=== PATIENT | male | born 1965 | race Caucasian/White ===

== ENCOUNTER 2017-11-11 07:25 | Outpatient (CLI) | payer BC ==
--- NOTE | 2017-11-11 09:04 | CT ---
CT OF THE ABDOMEN AND PELVIS WITH CONTRAST: Date: 11/11/17 COMPARISON: None. HISTORY: Recent colonoscopy with questionable appendix mass. COMPARISON: None. TECHNIQUE: Multiple contiguous axial images were obtained in a CT of the abdomen and pelvis with contrast. Coron al reformats were performed. PO contrast was administered. FINDINGS: The liver, gallbladder, right kidney, adrenal glands, spleen, and pancreas are unremarkable. A small hypodensity in the left kidney likely represents a small cyst. No free air, free fluid, or stranding changes are seen in the abdomen and pelvis. The large and small bowel are unremarkable. The appendix is unremarkable. No obvious mass is seen in the appendix. The base of the appendix is mi ldly prominent, measuring 10.0 mm, but the rest of the appendix is normal in caliber. The appendix is fluid-filled. Contrast is seen in the right colon, but no contrast is seen in the cecum, and the lac k of filling of contrast of the appendix may not be significant. No abdominal or pelvic lymphadenopathy seen. Degenerative changes are seen in the spine. The visualized inferior thorax and abdominal wall soft ti ssues are unremarkable. IMPRESSION: No evidence of acute intra-abdominal/pelvic abnormality. POS: [facility]
[2017-11-11] MEDS ORDERED: Iopamidol 370 76% 100 ML VIAL ONE (12:50)
== END 2017-11-11 07:26 | disposition home or self-care (01) ==
LOC: CT 07:25
PROVIDERS: ATTEND Internal Medicine Gastroenterology
DX: K38.9 Disease of appendix, unspecified (principal)
CPT/HCPCS: 74177

== ENCOUNTER 2017-11-29 12:58 | Outpatient (CLI) | payer BC ==
[2017-11-29 13:53] LABS: #Eosinphils 0.3 thou/uL (0.0-0.7); #Lymphocytes 1.6 thou/uL (1.20-3.40); #Monocytes 0.7 thou/uL (0.11-0.59); #Neutrophils 4.9 thou/uL (1.40-6.50); %Basophils 0.6 % (0.0-1.0); %Eosinophils 3.4 % (0.0-10.0); %Lymphocytes 20.7 % (21.0-51.0); %Monocytes 9.8 % (0.0-10.0); %Neutrophils 65.5 % (42.0-75.0); Hemoglobin 14.2 g/dL (14.0-18.0); Mean Corpuscular HGB CONC 36.3 g/dL (32.0-36.0); Mean Corpuscular Hemoglobin 32.7 pg (27.0-31.0); Mean Corpuscular Volume 90.2 fL (78.0-98.0); Mean Platelet Volume 7.4 fL (7.4-10.4); Platelet Count 231 thou/uL (130-400); RBC Distribution Width 11.5 % (11.5-14.5); Red Blood Cell (RBC) Count 4.35 mill/uL (4.70-6.10); White Blood Cell (WBC) Count 7.5 thou/uL (4.8-10.8)
[2017-11-29 14:02] LABS: Hemoglobin A1c 5.9 % (4.0-6.0)
[2017-11-29 14:16] LABS: Anion Gap 15 mmol/L (10-20); BUN (Urea Nitrogen) 15 mg/dL (8.9-20.6); Calc. Creatinine Clearance 0 mL/min (70-130); Calcium 9.5 mg/dL (7.8-10.44); Carbon Dioxide 24 mmol/L (22-29); Chloride 106 mmol/L (98-107); Estimated GFR-MDRD 78; Glucose 150 mg/dL (70-105); Potassium 3.8 mmol/L (3.5-5.1); Sodium 141 mmol/L (136-145)
--- NOTE | 2017-12-01 23:18 | EKG ---
Test Reason : Blood Pressure : / mmHG Vent. Rate : 099 BPM Atrial Rate : 099 BPM P-R Int : 156 ms QRS Dur : 082 ms QT Int : 342 ms P-R-T Axes : 052 003 017 degrees QTc Int : 438 ms Normal sinus rhythm Possible Inferior infarct , age undetermined Abnormal ECG When compared with ECG of 03-JUN-2014 14:10, Borderline criteria for Inferior infarct are now Present Confirmed by Mary Alice VELASCO ([id number]) on 12/01/2017 11:18:06 PM Referred By: MICHAEL Confirmed By:Mary Alice VELASCO
== END 2017-11-29 12:59 | disposition home or self-care (01) ==
LOC: LABBT 12:58
PROVIDERS: ATTEND Surgery
DX: Z01.818 Encounter for other preprocedural examination (principal); K38.8 Other specified diseases of appendix
CPT/HCPCS: 80048; 83036; 85025; 93005; 93010

== ENCOUNTER 2017-11-29 13:15 | Inpatient (IN) | payer BC ==
[2017-11-29 13:04] VITALS: BMI 32.8
[2017-12-05] MEDS ORDERED: Sodium Chloride 0.9% 100 ML ONE (07:52)
[2017-12-05] MEDS ORDERED: cefOXitin 2 GM VIAL ONE (07:52)
[2017-12-05] MEDS ORDERED: Dexamethasone 4 mg/ml Vial ONE (08:32)
[2017-12-05] MEDS ORDERED: Midazolam HCl 2 mg/2 ml Vial ONE (08:32)
[2017-12-05] MEDS ORDERED: Fentanyl 100 MCG/2 ML VIAL ONE ×2 (08:32→09:37)
[2017-12-05] MEDS ORDERED: Bupivacaine/Epinephrine 0.25% 30 ML VIAL ONE (09:25)
--- NOTE | 2017-12-05 12:06 | OP ---
DATE OF PROCEDURE: 12/05/2017 PREOPERATIVE DIAGNOSIS: Appendiceal mass. POSTOPERATIVE DIAGNOSIS: Appendiceal mass. PROCEDURE PERFORMED: Laparoscopic appendectomy. SURGEON: Rashaad Lacey M.D. ANESTHESIA: General. ESTIMATED BLOOD LOSS: Minimal. COMPLICATIONS: None. SPECIMEN: Appendix, opened on the back table to reveal cystic like changes at the base. No obvious gross involvement of the staple line. INDICATION: The patient is a 52-year-old male who had mucus coming out of his appendix on recent col onoscopy. CT scan revealed what appeared to be a fluid-filled appendix. The patient was asymptomati c, referred to [place] for appendectomy for removal of his presumed mucocele. The patient underwent mecha nical and antibiotic bowel prep in case he needed more of an extended colectomy. TECHNIQUE: The patient was taken to the operating room and placed supine on the table. After genera l anesthetic was obtained, a Peraza was placed. The abdomen was shaved, prepped, and draped in a ster ile fashion. Curved incision was made below the umbilicus. Cautery was used to dissect down to and score the fascia. Abdominal cavity entered bluntly using a Berkley clamp. A 12-mm trocar was placed. High-flow pneumoperitoneum was obtained. Suprapubic 5-mm port and left lower quadrant 5-mm port wer e placed under direct visualization. The cecum was rolled over to reveal the appendix. There was a cystic like potential mass at the base. A window was made posterior to the appendiceal base in this area of the cecum. The colon was mobilized along the white line laterally. Two loads of a 45 laparo scopic stapler was used to fire across the cecum to remove the appendix. The mesentery was taken usi ng a portillo load of the stapler. The appendix was placed in an Endo catch bag and brought out through the [place], opening the specimen on the back table revealed the presumed cystic mass to be within the appendix and no gross involvement of the margin. There is no bleeding on the staple lines. All por t sites are removed under camera visualization and pneumoperitoneum is let down. Vicryl was used to close the fascial defect below the umbilicus. All incisions were irrigated and closed using 4-0 Cascade cryl and Dermabond. The patient is en route to recovery in stable condition. All instrument counts, needle counts, lap counts were correct.
[2017-12-05] MEDS ORDERED: Bupivacaine HCl 0.5%/Epinephrine 1:200,000/PF 30 ml Vial ONE (13:59)
[2017-12-05] MEDS ORDERED: Ketorolac Tromethamine 30 MG/ML VIAL ONE (14:48)
[2017-12-05] MEDS ORDERED: Glycopyrrolate 0.2 MG/ML 5 ML SYRINGE ONE (14:48)
[2017-12-05] MEDS ORDERED: Ondansetron PF 4 MG/2 ML Vial ONE (14:48)
[2017-12-05] MEDS ORDERED: Lidocaine 1% PF 5 ML VIAL ONE (14:48)
[2017-12-05] MEDS ORDERED: PROPOFOL 200 MG/20 ML VIAL ONE (14:48)
== END 2017-12-05 12:15 | disposition home or self-care (01) | DRG 343 ==
LOC: SURG A 12-05 07:17
PROVIDERS: ADMIT Surgery; ATTEND Surgery
PROC: 0DTJ4ZZ Resection of Appendix, Percutaneous Endoscopic Approach (ICD-10-PCS; principal; 2017-12-05)
DX: K37 Unspecified appendicitis (principal)
CPT/HCPCS: 88304; J0670; J0694; J1100; J1885; J2001; J2250; J2405; J2704; J3010; J7050

== ENCOUNTER 2025-01-25 10:44 | Outpatient (CLI) | payer BC ==
[2025-01-25 11:45] LABS: Estimated GFR - POC 100.0
== END 2025-01-25 10:45 | disposition home or self-care (01) ==
LOC: SCSMRI 10:44
PROVIDERS: ATTEND Urology
DX: C61 Malignant neoplasm of prostate (principal); N42.89 Other specified disorders of prostate
CPT/HCPCS: 36415; 72197; 82565